=== PATIENT | female | born 1955 | race Caucasian/White ===

== ENCOUNTER 2017-03-30 06:59 | Outpatient (CLI) | payer OTHER ==
--- NOTE | 2017-03-30 10:22 | RAD ---
TWO VIEW CHEST: Comparison: 11-27-12 Indication: Dyspnea. FINDINGS: There is consolidation, effusion, or pneumothorax. Cardiac silhouette is within normal limits. There is osseous degenerative change. IMPRESSION: No focal consolidation. POS: [facility]
== END 2017-03-30 07:00 | disposition home or self-care (01) ==
LOC: RAD 06:59
PROVIDERS: ATTEND Internal Medicine Critical Care Medicine
DX: R06.00 Dyspnea, unspecified (principal)
CPT/HCPCS: 71020

== ENCOUNTER 2018-04-26 13:27 | Outpatient (CLI) | payer OTHER ==
--- NOTE | 2018-04-26 15:20 | BD ---
DEXA BONE DENSITY SCAN: DATE: 04/26/2018. COMPARISON: None. HISTORY: Postmenopausal female undergoing screening for osteoporosis. FINDINGS: Lumbar Spine: BMD (g/cm2) L1 1.101 T-Score: 1.0 L2 1.271 T-Score: 2.2 L3 1.354 T-Score: 2.5 L4 1.278 T-Score: 2.0 L1-L4 1.255 T-Score: 1.9 Femoral Neck: 0.841 T-Score: -0.1 Total Femur: 1.184 T-Score: 2.0 FRAX-WHO fracture risk assessment tool is not reported as T-scores are at or above -1.0. Impression: Normal lumbar spine bone mineral density. POS: [facility]
== END 2018-04-26 13:28 | disposition home or self-care (01) ==
LOC: BICMAMMO 13:27
PROVIDERS: ATTEND Internal Medicine
DX: Z12.31 Encounter for screening mammogram for malignant neoplasm of breast (principal); Z13.820 Encounter for screening for osteoporosis; Z78.0 Asymptomatic menopausal state
CPT/HCPCS: 77063; 77067; 77080

== ENCOUNTER 2019-02-21 15:45 | Outpatient (CLI) | payer MEDICARE ==
--- NOTE | 2019-02-21 16:25 | RAD ---
CERVICAL SPINE SERIES WITH FLEXION AND EXTENSION, FIVE VIEWS: 02/21/19 HISTORY: Neck pain. There is severe arthritic change of the lower spine. Marked degenerative change at the C5-6 and C6-7 levels. Very minimal anterolisthesis of C4 on C5 not significantly changed on the flexion or extensio n views. IMPRESSION: Marked arthritic changes of the lower cervical spine. POS: [facility]
--- NOTE | 2019-02-21 16:50 | MRI ---
MRI Cervical spine without contrast: HISTORY: Neck Pain COMPARISON: 18 June 2016 FINDINGS: The craniocervical junction is unremarkable. No significant cord signal abnormality. Grade 1 spondylolisthesis, C4-5. Focal kyphosis centered at C5-6 with prominent endplate degeneration and disc space narrowing. C1-2:Degenerative hypertrophy without significant stenosis C2-3:Right asymmetric disc osteophyte and uncinate process hypertrophy result in moderate right neura l foraminal stenosis. No high-grade central canal or left foraminal stenosis C3-4:Broad-based disc osteophyte, uncinate process and facet hypertrophy result in mild central canal stenosis, moderate left and mild to moderate right neural foraminal stenosis C4-5:Broad-based disc osteophyte, with moderate bilateral neural foraminal narrowing. Mild narrowing of central canal C5-6:Right asymmetric broad-based disc osteophyte with mild to moderate central canal stenosis and ve ntral cord effacement. There is [id number] bilateral neural foraminal narrowing C6-7: Broad-based disc osteophyte with moderate central canal stenosis and ventral cord effacement. T here is moderate to severe bilateral neural foraminal stenosis C7-T1:Mild disc osteophyte formation without high-grade central canal stenosis. There is mild bilater al neural foraminal narrowing. IMPRESSION: Multilevel degenerative change throughout the cervical spine, as above. Transcribed Date/Time: 02/21/2019 4:57 PM
== END 2019-02-21 15:46 | disposition home or self-care (01) ==
LOC: TBSIIMAG 15:45
PROVIDERS: ATTEND Physician Assistant Surgical
DX: M54.2 Cervicalgia (principal); R20.2 Paresthesia of skin; M47.812 Spondylosis without myelopathy or radiculopathy, cervical region
CPT/HCPCS: 72050; 72141

== ENCOUNTER 2020-01-16 09:17 | Emergency (ER) | payer MEDICARE ==
[2020-01-16 10:04] LABS: #Eosinphils 0.1 thou/uL (0.0-0.7); #Monocytes 0.6 thou/uL (0.11-0.59); #Neutrophils 5.1 thou/uL (1.40-6.50); %Basophils 0.4 % (0.0-1.0); %Eosinophils 1.7 % (0.0-10.0); %Lymphocytes 25.5 % (21.0-51.0); %Monocytes 7.3 % (0.0-10.0); %Neutrophils 65.1 % (42.0-75.0); Hemoglobin 11.7 g/dL (12.0-16.0); Mean Corpuscular HGB CONC 32.9 g/dL (32.0-36.0); Mean Corpuscular Hemoglobin 29.3 pg (27.0-31.0); Mean Corpuscular Volume 88.8 fL (78.0-98.0); Mean Platelet Volume 7.8 fL (7.4-10.4); Platelet Count 226 thou/uL (130-400); RBC Distribution Width 13.2 % (11.5-14.5); White Blood Cell (WBC) Count 7.9 thou/uL (4.8-10.8)
--- NOTE | 2020-01-16 10:12 | CT ---
CT BRAIN NONCONTRAST: DATE: 01/16/2020 HISTORY: 64-year-old female status post acute head trauma due to fall FINDINGS: There is no evidence of acute intra-axial or extra-axial hemorrhage. There is no midline shift or any other mass effect. There is no extra-axial fluid collection. The ventricles are normal in size and configuration. The tympanomastoid cavities, and the upper portions of the paranasal sinuses included in these images, are grossly clear. Calvarium is intact. IMPRESSION: Normal.
--- NOTE | 2020-01-16 10:19 | CT ---
CT CERVICAL SPINE NONCONTRAST: DATE: 01/16/2020 HISTORY: cervical trauma: 64-year-old female status post fall FINDINGS: There are no jumped or perched facets. There is no evidence of acute fracture. The vertebral body hei ghts are maintained. There is no prevertebral soft tissue swelling. There are degenerative disc changes and facet osteoarthrosis. There are nonspecific groundglass changes at the bilateral lung api feli. IMPRESSION: 1) Cervical spondylosis. 2) no evidence of acute fracture or acute traumatic subluxation.
--- NOTE | 2020-01-16 10:21 | RAD ---
XR Chest 1 View Portable HISTORY: Trauma, head injury COMPARISON: 10/12/2019 FINDINGS: The heart size is normal. The lungs are well expanded without focal areas of consolidation, pneumothorax or pleural effusions. IMPRESSION: No radiographic evidence of acute cardiopulmonary process.
[2020-01-16 10:27] LABS: ALT (SGPT) 26 U/L (8-55); AST (SGOT) 22 U/L (5-34); Alkaline Phosphatase 78 U/L (40-110); Anion Gap 15 mmol/L (10-20); BUN (Urea Nitrogen) 15 mg/dL (9.8-20.1); Bilirubin, Total 0.5 mg/dL (0.2-1.2); Calc. Creatinine Clearance 0 mL/min (70-130); Carbon Dioxide 23 mmol/L (23-31); Chloride 106 mmol/L (98-107); Estimated GFR-MDRD 76; Globulin 3.2 g/dL (2.4-3.5); Glucose 121 mg/dL (80-115); Potassium 3.6 mmol/L (3.5-5.1); Protein, Total 7.2 g/dL (6.0-8.3); Sodium 140 mmol/L (136-145)
[2020-01-16 10:28] LABS: Prothrombin Time 12.9 sec (12.0-14.7)
== END 2020-01-16 11:05 | disposition home or self-care (01) ==
LOC: ERS 09:17
DX: S09.90XA Unspecified injury of head, initial encounter (principal); I10 Essential (primary) hypertension; V19.9XXA Pedal cyclist (driver) (passenger) injured in unspecified traffic accident, initial encounter
CPT/HCPCS: 36415; 70450; 71045; 72125; 80053; 85025; 85610

== ENCOUNTER 2020-03-25 20:53 | Emergency (ER) | payer MEDICARE ==
[2020-03-25 21:24] LABS: #Eosinphils 0.1 thou/uL (0.0-0.7); #Lymphocytes 2.8 thou/uL (1.20-3.40); #Monocytes 0.8 thou/uL (0.11-0.59); #Neutrophils 5.4 thou/uL (1.40-6.50); %Basophils 0.3 % (0.0-1.0); %Eosinophils 1.6 % (0.0-10.0); %Lymphocytes 30.3 % (21.0-51.0); %Monocytes 8.8 % (0.0-10.0); Hemoglobin 12.3 g/dL (12.0-16.0); Mean Corpuscular HGB CONC 33.5 g/dL (32.0-36.0); Mean Corpuscular Hemoglobin 29.8 pg (27.0-31.0); Platelet Count 254 thou/uL (130-400); Red Blood Cell (RBC) Count 4.14 mill/uL (4.20-5.40); White Blood Cell (WBC) Count 9.2 thou/uL (4.8-10.8)
[2020-03-25 21:29] LABS: Bilirubin Negative (Negative); Blood, Urine Negative (Negative); Clarity Clear (Clear); Glucose, Urine (Dipstick) Normal (Negative); Ketone, Urine Negative (Negative); Leukocyte Negative Leu/uL (Negative); Nitrite Negative (Negative); Protein, Urine (Dipstick) Negative (Neg-Trace); Urobilinogen Normal mg/dL (Less than 2); pH, Urine 6.5 (5.0-9.0)
[2020-03-25 21:32] LABS: Specific Gravity, Urine 1.005 (1.002-1.036)
[2020-03-25 21:46] LABS: ALT (SGPT) 15 U/L (8-55); AST (SGOT) 16 U/L (5-34); Albumin 4.4 g/dL (3.4-4.8); Alkaline Phosphatase 78 U/L (40-110); Anion Gap 15 mmol/L (10-20); BUN (Urea Nitrogen) 12 mg/dL (9.8-20.1); Bilirubin, Total 0.2 mg/dL (0.2-1.2); Calc. Creatinine Clearance 0 mL/min (70-130); Calcium 9.4 mg/dL (7.8-10.44); Carbon Dioxide 23 mmol/L (23-31); Chloride 110 mmol/L (98-107); Estimated GFR-MDRD 76; Globulin 3.2 g/dL (2.4-3.5); Glucose 164 mg/dL (80-115); Potassium 3.8 mmol/L (3.5-5.1); Protein, Total 7.6 g/dL (6.0-8.3); Sodium 144 mmol/L (136-145)
--- NOTE | 2020-03-25 21:48 | RAD ---
Chest one view HISTORY: Hypertension. COMPARISON: 01/16/2020. FINDINGS: Cardiac silhouette is magnified and enlarged. Pulmonary vasculature is unremarkable. Mediastinum is midline. No lobar consolidation or evidence of pneumothorax. IMPRESSION : Cardiomegaly, stable. No new abnormalities are demonstrated.
== END 2020-03-26 00:02 | disposition home or self-care (01) ==
LOC: ERS 20:53
DX: I10 Essential (primary) hypertension (principal); Z79.82 Long term (current) use of aspirin; Z79.899 Other long term (current) drug therapy
CPT/HCPCS: 36415; 71045; 80053; 81003; 84484; 85025; 93005

== ENCOUNTER 2021-05-07 10:50 | Outpatient (CLI) | payer MEDICARE | END 2021-05-07 10:51 | disposition home or self-care (01) | LOC: BICMAMMO 10:50 | PROVIDERS: ATTEND Internal Medicine | DX: Z12.31 Encounter for screening mammogram for malignant neoplasm of breast (principal) | CPT/HCPCS: 77063; 77067 ==

== ENCOUNTER 2021-08-15 15:31 | Observation (INO) | payer MEDICARE ==
[~2021-08-15 15:31] MED LIST: Iopamidol-370 76% 500 ML 1 ML ONE
[2021-08-15] MEDS ORDERED: Nitroglycerin 2% Ointment 1 INCH/1 GM Packet ONE (15:45)
[2021-08-15] MEDS ORDERED: Metoprolol Tartrate 5 MG/5 ML VIAL ONE (15:45)
[2021-08-15 15:55] LABS: #Eosinphils 0.1 thou/uL (0.0-0.7); #Lymphocytes 2.9 thou/uL (1.20-3.40); #Monocytes 0.5 thou/uL (0.11-0.59); %Basophils 0.1 % (0.0-1.0); %Eosinophils 1.3 % (0.0-10.0); %Lymphocytes 34.4 % (21.0-51.0); %Monocytes 5.5 % (0.0-10.0); %Neutrophils 58.7 % (42.0-75.0); Hemoglobin 12.8 g/dL (12.0-16.0); Mean Corpuscular HGB CONC 32.3 g/dL (32.0-36.0); Mean Corpuscular Hemoglobin 29.9 pg (27.0-31.0); Mean Corpuscular Volume 92.4 fL (78.0-98.0); Platelet Count 373 thou/uL (130-400); RBC Distribution Width 12.8 % (11.5-14.5); Red Blood Cell (RBC) Count 4.29 mill/uL (4.20-5.40); White Blood Cell (WBC) Count 8.5 thou/uL (4.8-10.8)
[2021-08-15 16:16] LABS: ALT (SGPT) 22 U/L (8-55); AST (SGOT) 27 U/L (5-34); Albumin 4.1 g/dL (3.4-4.8); Alkaline Phosphatase 78 U/L (40-110); Anion Gap 17 mmol/L (10-20); BUN (Urea Nitrogen) 13 mg/dL (9.8-20.1); Bilirubin, Total 0.5 mg/dL (0.2-1.2); Calc. Creatinine Clearance 0 mL/min (70-130); Calcium 9.6 mg/dL (7.8-10.44); Carbon Dioxide 21 mmol/L (23-31); Chloride 104 mmol/L (98-107); Glucose 160 mg/dL (80-115); Magnesium 1.9 mg/dL (1.6-2.6); Potassium 3.6 mmol/L (3.5-5.1); Protein, Total 8.1 g/dL (5.8-8.1); Sodium 138 mmol/L (136-145)
[2021-08-15] MEDS ORDERED: HYDROcodone/Acetaminophen 7.5/325 mg Tablet ONE (16:53)
[2021-08-15] MEDS ORDERED: Lorazepam 1 MG TAB ONE (19:35)
[2021-08-15 20:37] LABS: Troponin I Less than 0.010 ng/mL (< 0.028)
[2021-08-15] MEDS ORDERED: Acetaminophen 325 MG TAB PO PRN (21:31)
[2021-08-15] MEDS ORDERED: Nitroglycerin 0.4 MG TAB (25 Tab Bottle) SL PRN (21:31)
[2021-08-15] MEDS ORDERED: hydrALAZINE 20 MG/ML VIAL SLOW IVP PRN (21:46)
[2021-08-15 23:17] VITALS: BMI 33.2
[2021-08-15] MEDS: HYDROcodone/Acetaminophen 7.5/325 mg Tablet PO PRN (23:35)
[2021-08-15 23:42] LABS: Troponin I Less than 0.010 ng/mL (< 0.028)
[2021-08-16] MEDS: HYDROcodone/Acetaminophen 7.5/325 mg Tablet PO PRN ×4 (04:00→22:01)
[2021-08-16] MEDS: NIFEdipine XL 30 MG TAB PO SCH ×2 (04:48→18:15)
[2021-08-16 05:12] LABS: #Eosinphils 0.1 thou/uL (0.0-0.7); #Lymphocytes 2.3 thou/uL (1.20-3.40); #Monocytes 0.6 thou/uL (0.11-0.59); #Neutrophils 5.1 thou/uL (1.40-6.50); %Basophils 0.2 % (0.0-1.0); %Lymphocytes 28.6 % (21.0-51.0); %Monocytes 7.5 % (0.0-10.0); %Neutrophils 62.8 % (42.0-75.0); Hemoglobin 11.3 g/dL (12.0-16.0); Mean Corpuscular HGB CONC 32.2 g/dL (32.0-36.0); Mean Corpuscular Hemoglobin 29.8 pg (27.0-31.0); Mean Corpuscular Volume 92.5 fL (78.0-98.0); Mean Platelet Volume 6.7 fL (7.4-10.4); Platelet Count 327 thou/uL (130-400); RBC Distribution Width 12.9 % (11.5-14.5); White Blood Cell (WBC) Count 8.1 thou/uL (4.8-10.8)
[2021-08-16 05:31] LABS: Anion Gap 14 mmol/L (10-20); BUN (Urea Nitrogen) 12 mg/dL (9.8-20.1); Calc. Creatinine Clearance 113 mL/min (70-130); Calcium 9.1 mg/dL (7.8-10.44); Carbon Dioxide 23 mmol/L (23-31); Chloride 107 mmol/L (98-107); Glucose 105 mg/dL (80-115); Potassium 3.4 mmol/L (3.5-5.1); Sodium 141 mmol/L (136-145)
[2021-08-16] MEDS: Aspirin 325 mg Enteric Coated Tablet PO SCH ×3 (08:02→08:03)
[2021-08-16] MEDS: Enoxaparin Sodium 40 MG/0.4 ML SYRINGE SC SCH (08:03)
[2021-08-16] MEDS: ALPRAZolam 0.25 MG TAB PO PRN ×2 (08:05→19:41)
[2021-08-16] MEDS ORDERED: NIFEdipine XL 30 MG TAB PO SCH ×2 (09:00→18:00)
[2021-08-16] MEDS ORDERED: ADENOSINE 60 MG/20 ML VIAL ONE (10:50)
[2021-08-16 16:20] LABS: SARS-CoV-2 PCR by NAA Not Detected (NotDetected)
[2021-08-16] MEDS ORDERED: Potassium Chloride 20 MEQ TAB PO SCH (16:30)
[2021-08-16] MEDS ORDERED: Labetalol HCl 100 MG/20 ML VIAL ONE (18:00)
[2021-08-16] MEDS ORDERED: Labetalol HCl 100 MG/20 ML VIAL SLOW IVP SCH (18:00)
[2021-08-16] MEDS ORDERED: Labetalol HCl 100 MG/20 ML VIAL SLOW IVP PRN (18:34)
[2021-08-17] MEDS: HYDROcodone/Acetaminophen 7.5/325 mg Tablet PO PRN ×3 (02:15→10:43)
[2021-08-17 05:17] LABS: #Eosinphils 0.1 thou/uL (0.0-0.7); #Lymphocytes 2.8 thou/uL (1.20-3.40); #Monocytes 0.6 thou/uL (0.11-0.59); #Neutrophils 3.7 thou/uL (1.40-6.50); %Basophils 0.1 % (0.0-1.0); %Eosinophils 1.6 % (0.0-10.0); %Lymphocytes 39.3 % (21.0-51.0); %Monocytes 7.8 % (0.0-10.0); %Neutrophils 51.3 % (42.0-75.0); Hemoglobin 11.8 g/dL (12.0-16.0); Mean Corpuscular HGB CONC 32.5 g/dL (32.0-36.0); Mean Corpuscular Hemoglobin 30.1 pg (27.0-31.0); Mean Corpuscular Volume 92.7 fL (78.0-98.0); Mean Platelet Volume 6.9 fL (7.4-10.4); Platelet Count 339 thou/uL (130-400); RBC Distribution Width 13.1 % (11.5-14.5); Red Blood Cell (RBC) Count 3.92 mill/uL (4.20-5.40); White Blood Cell (WBC) Count 7.2 thou/uL (4.8-10.8)
[2021-08-17 05:42] LABS: Anion Gap 13 mmol/L (10-20); BUN (Urea Nitrogen) 13 mg/dL (9.8-20.1); Calc. Creatinine Clearance 110 mL/min (70-130); Calcium 9.2 mg/dL (7.8-10.44); Carbon Dioxide 22 mmol/L (23-31); Chloride 108 mmol/L (98-107); Glucose 92 mg/dL (80-115); Potassium 4.1 mmol/L (3.5-5.1); Sodium 139 mmol/L (136-145)
[2021-08-17 07:36] VITALS: BP 162/67; TEMP 98.3
[2021-08-17] MEDS: Aspirin 325 mg Enteric Coated Tablet PO SCH (08:51)
[2021-08-17] MEDS: Enoxaparin Sodium 40 MG/0.4 ML SYRINGE SC SCH (08:52)
[2021-08-17] MEDS: ALPRAZolam 0.25 MG TAB PO PRN (08:53)
[2021-08-17] MEDS ORDERED: NIFEdipine XL 60 MG TAB PO SCH (09:00)
== END 2021-08-17 11:00 | disposition home or self-care (01) ==
LOC: ERS 15:31 → 2SW 19:29
PROVIDERS: ADMIT Internal Medicine; ATTEND Internal Medicine
DX: R07.89 Other chest pain (principal); E87.6 Hypokalemia; I16.0 Hypertensive urgency; I10 Essential (primary) hypertension; Z79.82 Long term (current) use of aspirin; Z79.899 Other long term (current) drug therapy; Z96.652 Presence of left artificial knee joint; Z20.822 Contact with and (suspected) exposure to COVID-19
CPT/HCPCS: 71275; 78452; 80048 ×2; 80053; 82962; 83735; 83880; 84484 ×2; 85025 ×3; 93017; 94760 ×3; 96372 ×2; 96374; 96375; 99285; A9500; G0378 ×4; U0003; U0005; 36415; 36416; J0153; J0360; J1650; Q9967

== ENCOUNTER 2021-09-23 10:14 | Emergency (ER) | payer MEDICARE ==
[2021-09-23 11:04] LABS: Bilirubin Negative (Negative); Blood, Urine Negative (Negative); Clarity Clear (Clear); Glucose, Urine (Dipstick) Normal (Negative); Ketone, Urine Negative (Negative); Leukocyte Negative Leu/uL (Negative); Nitrite Negative (Negative); Protein, Urine (Dipstick) Negative (Neg-Trace); Specific Gravity, Urine 1.011 (1.002-1.036); Urobilinogen Normal mg/dL (Less than 2)
[2021-09-23 11:33] LABS: #Eosinphils 0.2 thou/uL (0.0-0.7); #Lymphocytes 2.7 thou/uL (1.20-3.40); #Monocytes 0.5 thou/uL (0.11-0.59); #Neutrophils 4.3 thou/uL (1.40-6.50); %Basophils 0.6 % (0.0-1.0); %Eosinophils 2.9 % (0.0-10.0); %Lymphocytes 35.6 % (21.0-51.0); %Monocytes 5.8 % (0.0-10.0); %Neutrophils 55.2 % (42.0-75.0); Hemoglobin 13.6 g/dL (12.0-16.0); Mean Corpuscular Volume 90.9 fL (78.0-98.0); Platelet Count 315 thou/uL (130-400); RBC Distribution Width 12.2 % (11.5-14.5); Red Blood Cell (RBC) Count 4.52 mill/uL (4.20-5.40); White Blood Cell (WBC) Count 7.7 thou/uL (4.8-10.8)
[2021-09-23] MEDS ORDERED: Ketorolac Tromethamine 30 MG/ML VIAL ONE (11:33)
[2021-09-23 11:51] LABS: ALT (SGPT) 21 U/L (8-55); AST (SGOT) 22 U/L (5-34); Albumin 4.3 g/dL (3.4-4.8); Alkaline Phosphatase 103 U/L (40-110); Anion Gap 15 mmol/L (10-20); BUN (Urea Nitrogen) 7 mg/dL (9.8-20.1); Bilirubin, Total 0.4 mg/dL (0.2-1.2); Calc. Creatinine Clearance 0 mL/min (70-130); Calcium 9.4 mg/dL (7.8-10.44); Carbon Dioxide 24 mmol/L (23-31); Chloride 104 mmol/L (98-107); Globulin 3.8 g/dL (2.4-3.5); Glucose 119 mg/dL (80-115); Lipase 15 U/L (8-78); Potassium 3.7 mmol/L (3.5-5.1); Protein, Total 8.1 g/dL (5.8-8.1); Sodium 139 mmol/L (136-145)
[2021-09-23] MEDS ORDERED: Morphine 4 MG/ML VIAL ONE (13:14)
== END 2021-09-23 13:20 | disposition home or self-care (01) ==
LOC: ERS 10:14
DX: R10.9 Unspecified abdominal pain (principal); I10 Essential (primary) hypertension
CPT/HCPCS: 36415; 74177; 80053; 81003; 83690; 85025; 96374; 96375; J1885; J2270

== ENCOUNTER 2022-12-27 08:25 | Outpatient (CLI) | payer MEDICARE | END 2022-12-27 08:26 | disposition home or self-care (01) | LOC: NM 08:25 | PROVIDERS: ATTEND Specialist | DX: M17.12 Unilateral primary osteoarthritis, left knee (principal); Z96.652 Presence of left artificial knee joint | CPT/HCPCS: 78315; A9503 ==

== ENCOUNTER 2023-04-06 12:28 | Outpatient (CLI) | payer MEDICARE ==
[2023-04-06 14:34] LABS: #Basophils 0.1 10x3/uL (0.0-0.2); #Eosinphils 0.2 10x3/uL (0.0-0.5); #Monocytes 0.6 10x3/uL (0.0-1.1); #Neutrophils 5.2 10x3/uL (1.5-8.4); %Basophils 0.7 % (0.0-2.0); %Eosinophils 2.2 % (0.0-6.0); %Monocytes 6.6 % (0.0-10.0); %Neutrophils 56.2 % (40.0-75.0); Hematocrit 40.4 % (34.9-44.5); Hemoglobin 13.1 g/dL (12.0-15.5); Mean Corpuscular HGB CONC 32.4 g/dL (32.0-36.0); Mean Corpuscular Volume 86.3 fl (81.6-98.3); Mean Platelet Volume 10.7 fl (7.4-10.4); Platelet Count 334 10x3/uL (150-450); RBC Distribution Width 13.6 % (11.5-14.5); Red Blood Cell (RBC) Count 4.68 10x6/uL (3.90-5.03); White Blood Cell (WBC) Count 9.2 10x3/uL (3.5-10.5)
[2023-04-06 14:42] LABS: Prothrombin Time 10.3 sec (9.5-12.1)
[2023-04-06 14:57] LABS: Anion Gap 15 mmol/L (10-20); BUN (Urea Nitrogen) 14 mg/dL (9.8-20.1); Calc. Creatinine Clearance 0 mL/min (70-130); Calcium 9.7 mg/dL (7.8-10.44); Carbon Dioxide 24 mmol/L (23-31); Chloride 106 mmol/L (98-107); Estimated GFR 92; Glucose 99 mg/dL (80-115); Potassium 4.2 mmol/L (3.5-5.1); Sodium 141 mmol/L (136-145)
== END 2023-04-06 12:29 | disposition home or self-care (01) ==
LOC: LABBT 12:28
PROVIDERS: ATTEND Orthopaedic Surgery
DX: Z01.818 Encounter for other preprocedural examination (principal); Z96.652 Presence of left artificial knee joint
CPT/HCPCS: 80048; 85025; 85610; 87081; 93005; 93010

== ENCOUNTER 2023-04-12 05:34 | Inpatient (IN) | payer MEDICARE ==
[2023-04-06 13:10] VITALS: BMI 32.4
[2023-04-12] MEDS ORDERED: Tranexamic Acid 1,000 MG/10 ML VIAL ONE (06:03)
[2023-04-12] MEDS ORDERED: Sodium Chloride 0.9% 100 ML ONE ×2 (06:03→06:57)
[2023-04-12] MEDS ORDERED: Vancomycin (BATCH) 1.5 GM/300 ML BAG ONE (06:03)
[2023-04-12] MEDS ORDERED: Dexmedetomidine 200 MCG/2 ML VIAL ONE (06:04)
[2023-04-12] MEDS ORDERED: fentaNYL PF 100 MCG/2 ML SYRINGE ONE (06:04)
[2023-04-12] MEDS ORDERED: HYDROmorphone 0.5 MG/0.5 ML SYRINGE ONE ×4 (06:05→11:03)
[2023-04-12] MEDS ORDERED: Midazolam HCl 2 mg/2 ml Vial ONE (06:05)
[2023-04-12] MEDS ORDERED: Tobramycin Sulfate 1.2 GM VIAL ONE (06:30)
[2023-04-12] MEDS ORDERED: Vancomycin 1 GM VIAL ONE (06:30)
[2023-04-12] MEDS ORDERED: Bupivacaine PF 0.5% 30 ML VIAL ONE ×2 (06:30→08:08)
[2023-04-12] MEDS ORDERED: diphenhydrAMINE 25 MG CAP PO PRN (06:39)
[2023-04-12] MEDS ORDERED: Promethazine HCl 25 MG/ML VIAL IM PRN ×3 (06:39→08:47)
[2023-04-12] MEDS ORDERED: HYDROcodone/Acetaminophen 10/325 mg Tablet PO PRN ×2 (06:39)
[2023-04-12] MEDS ORDERED: Acetaminophen 325 MG TAB PO PRN (06:39)
[2023-04-12] MEDS ORDERED: Zolpidem Tartrate 5 MG TAB PO PRN ×2 (06:39→08:00)
[2023-04-12] MEDS ORDERED: fentaNYL 50 mcg/mL 1 mL Vial SLOW IVP PRN ×3 (06:39→07:51)
[2023-04-12] MEDS ORDERED: Ondansetron PF 4 MG/2 ML Vial IVP PRN (06:39)
[2023-04-12] MEDS ORDERED: Ondansetron PF 4 MG/2 ML Vial ONE ×2 (06:41→09:09)
[2023-04-12] MEDS ORDERED: Bupivacaine HCl 0.5%/Epinephrine 1:200,000/PF 30 ml Vial ONE (06:41)
[2023-04-12] MEDS ORDERED: hydrALAZINE 25 MG TAB PO PRN (06:48)
[2023-04-12] MEDS ORDERED: CEFAZOLIN 2 GM VIAL ONE (06:56)
[2023-04-12] MEDS ORDERED: Propofol 500 MG/50 ML VIAL ONE (07:02)
[2023-04-12] MEDS ORDERED: Ropivacaine 0.2% 550 ML 550 ML NERVE BLCK SCH (08:00)
[2023-04-12] MEDS ORDERED: PROPOFOL 20 ML ONE ×3 (08:08→09:01)
[2023-04-12] MEDS ORDERED: Lidocaine 1% (PF) 30 ML VIAL ONE (08:08)
[2023-04-12] MEDS ORDERED: HYDROmorphone 2 MG/ML VIAL SLOW IVP PRN (08:47)
[2023-04-12] MEDS ORDERED: Ondansetron HCl/PF 4 MG/2 ML Vial IVP PRN (08:47)
[2023-04-12] MEDS ORDERED: cloNIDine 0.1mg/24 Hour PATCH TD SCH (09:00)
[2023-04-12] MEDS ORDERED: Ketorolac Tromethamine 30 MG/ML VIAL ONE (09:50)
[2023-04-12] MEDS: ALPRAZolam 0.25 MG TAB PO SCH ×2 (13:22→21:19)
[2023-04-12] MEDS: Flecainide 50 MG TAB PO SCH ×2 (13:22→21:19)
[2023-04-12] MEDS: Sodium Chloride 0.9% 1,000 ML IV SCH ×2 (13:22→18:32)
[2023-04-12] MEDS: Cholecalciferol 1,000 UNITS (25 MCG) TAB PO SCH (13:22)
[2023-04-12] MEDS: Aspirin 81 mg Enteric Coated Tablet PO SCH ×2 (13:22→21:19)
[2023-04-12] MEDS: NIFEdipine XL 60 MG ER.TAB PO SCH (13:22)
[2023-04-12] MEDS: Ketorolac Tromethamine 30 MG/ML VIAL IVP SCH ×3 (13:26→23:59)
[2023-04-12] MEDS ORDERED: Ketorolac Tromethamine 30 MG/ML VIAL IVP SCH (14:00)
[2023-04-12] MEDS: CEFAZOLIN 2 GM in Sodium Chloride 0.9% 100 ML IVPB SCH (15:10)
[2023-04-12] MEDS: Ondansetron PF 4 MG/2 ML Vial IVP PRN ×2 (15:12→21:17)
[2023-04-12] MEDS: Atorvastatin Calcium 20 MG TAB PO SCH (21:19)
[2023-04-12] MEDS: HYDROcodone/Acetaminophen 10/325 mg Tablet PO PRN (21:19)
[2023-04-13] MEDS: CEFAZOLIN 2 GM in Sodium Chloride 0.9% 100 ML IVPB SCH
[2023-04-13] MEDS: Ondansetron PF 4 MG/2 ML Vial IVP PRN ×2 (05:43→11:46)
[2023-04-13] MEDS: Ketorolac Tromethamine 30 MG/ML VIAL IVP SCH ×3 (05:43→18:14)
[2023-04-13] MEDS: HYDROcodone/Acetaminophen 10/325 mg Tablet PO PRN ×4 (05:46→22:20)
[2023-04-13 06:16] LABS: Hematocrit 30.4 % (36.0-47.0); Hemoglobin 9.6 g/dL (12.0-16.0); Mean Corpuscular HGB CONC 31.6 g/dL (32.0-36.0); Mean Corpuscular Hemoglobin 28.5 pg (27.0-31.0); Mean Corpuscular Volume 90.2 fl (78.0-98.0); Mean Platelet Volume 10.9 fL (7.4-10.4); Platelet Count 218 10x3/uL (130-400); RBC Distribution Width 13.6 % (11.5-14.5); Red Blood Cell (RBC) Count 3.37 mill/uL (4.20-5.40); White Blood Cell (WBC) Count 10.2 10x3/uL (4.8-10.8)
[2023-04-13] MEDS: Sodium Chloride 0.9% 1,000 ML IV SCH ×2 (06:21→16:11)
[2023-04-13] MEDS: NIFEdipine XL 60 MG ER.TAB PO SCH (09:21)
[2023-04-13] MEDS: Aspirin 81 mg Enteric Coated Tablet PO SCH ×2 (09:21→20:43)
[2023-04-13] MEDS: Flecainide 50 MG TAB PO SCH ×2 (09:21→20:43)
[2023-04-13] MEDS: ALPRAZolam 0.25 MG TAB PO SCH ×2 (09:21→20:43)
[2023-04-13] MEDS ORDERED: Scopolamine 1 mg/72 hour Patch TD SCH ×2 (11:08→12:15)
[2023-04-13] MEDS ORDERED: Dexamethasone 4 mg/ml Vial SLOW IVP SCH (11:15)
[2023-04-13] MEDS: Senokot S 8.6-50 MG TAB PO SCH ×2 (12:39→20:43)
[2023-04-13] MEDS: Ferrous Gluconate 324 MG TAB PO SCH ×2 (12:39→20:43)
[2023-04-13] MEDS: Cholecalciferol 1,000 UNITS (25 MCG) TAB PO SCH (12:39)
[2023-04-13] MEDS: Multivitamin W/ Minerals 1 TAB PO SCH (12:39)
[2023-04-13] MEDS: Atorvastatin Calcium 20 MG TAB PO SCH (20:43)
[2023-04-14] MEDS: Ketorolac Tromethamine 30 MG/ML VIAL IVP SCH ×2 (00:17→05:25)
[2023-04-14] MEDS: Sodium Chloride 0.9% 1,000 ML IV SCH ×3 (00:20→21:27)
[2023-04-14] MEDS: HYDROcodone/Acetaminophen 10/325 mg Tablet PO PRN ×5 (05:26→21:25)
[2023-04-14 05:33] LABS: Hematocrit 32.3 % (36.0-47.0); Mean Corpuscular Hemoglobin 27.7 pg (27.0-31.0); Mean Corpuscular Volume 89.5 fl (78.0-98.0); Mean Platelet Volume 10.8 fL (7.4-10.4); Platelet Count 229 10x3/uL (130-400); RBC Distribution Width 13.5 % (11.5-14.5); Red Blood Cell (RBC) Count 3.61 mill/uL (4.20-5.40); White Blood Cell (WBC) Count 12.1 10x3/uL (4.8-10.8)
[2023-04-14] MEDS: NIFEdipine XL 60 MG ER.TAB PO SCH (09:45)
[2023-04-14] MEDS: Senokot S 8.6-50 MG TAB PO SCH ×2 (09:45→20:07)
[2023-04-14] MEDS: Flecainide 50 MG TAB PO SCH ×2 (09:45→20:07)
[2023-04-14] MEDS: Ferrous Gluconate 324 MG TAB PO SCH ×2 (09:46→20:07)
[2023-04-14] MEDS: Multivitamin W/ Minerals 1 TAB PO SCH (09:46)
[2023-04-14] MEDS: ALPRAZolam 0.25 MG TAB PO SCH ×2 (09:46→20:07)
[2023-04-14] MEDS: Cholecalciferol 1,000 UNITS (25 MCG) TAB PO SCH (09:46)
[2023-04-14] MEDS: Aspirin 81 mg Enteric Coated Tablet PO SCH (09:50)
[2023-04-14] MEDS ORDERED: Apixaban 5 MG TAB PO SCH (10:15)
[2023-04-14] MEDS ORDERED: DEXAMETHASONE IVPB ONE (11:05)
[2023-04-14] MEDS ORDERED: SODIUM CHLORIDE 0.9% IVPB ONE (11:05)
[2023-04-14] MEDS: Apixaban 5 MG TAB PO SCH (20:07)
[2023-04-14] MEDS: Atorvastatin Calcium 20 MG TAB PO SCH (20:07)
[2023-04-15] MEDS: HYDROcodone/Acetaminophen 10/325 mg Tablet PO PRN ×2 (02:33→06:21)
[2023-04-15] MEDS: Sodium Chloride 0.9% 1,000 ML IV SCH (05:36)
[2023-04-15 08:45] VITALS: BP 147/73; TEMP 98.3
[2023-04-15] MEDS: Ferrous Gluconate 324 MG TAB PO SCH (08:46)
[2023-04-15] MEDS: NIFEdipine XL 60 MG ER.TAB PO SCH (08:46)
[2023-04-15] MEDS: ALPRAZolam 0.25 MG TAB PO SCH (08:46)
[2023-04-15] MEDS: Flecainide 50 MG TAB PO SCH (08:47)
[2023-04-15] MEDS: Senokot S 8.6-50 MG TAB PO SCH (08:47)
[2023-04-15] MEDS: Apixaban 5 MG TAB PO SCH (08:47)
[2023-04-15] MEDS: Cholecalciferol 1,000 UNITS (25 MCG) TAB PO SCH (08:47)
[2023-04-15] MEDS: Multivitamin W/ Minerals 1 TAB PO SCH (08:47)
[2023-04-15] MEDS: Ondansetron PF 4 MG/2 ML Vial IVP PRN (08:49)
[2023-04-15] MEDS ORDERED: Scopolamine 1 mg/72 hour Patch TOP SCH (11:00)
== END 2023-04-15 10:40 | disposition home or self-care (01) | DRG 468 ==
LOC: SDC 05:34 → SURG A 06:43
PROVIDERS: ADMIT Orthopaedic Surgery; ATTEND Orthopaedic Surgery
PROC: 0SPD0JZ Removal of Synthetic Substitute from Left Knee Joint, Open Approach (ICD-10-PCS; principal; 2023-04-12)
PROC: 0SRD0J9 Replacement of Left Knee Joint with Synthetic Substitute, Cemented, Open Approach (ICD-10-PCS; 2023-04-12)
DX: T84.093A Other mechanical complication of internal left knee prosthesis, initial encounter (principal); Y83.8 Other surgical procedures as the cause of abnormal reaction of the patient, or of later complication, without mention of misadventure at the time of the procedure; I10 Essential (primary) hypertension; E78.00 Pure hypercholesterolemia, unspecified; Z90.710 Acquired absence of both cervix and uterus; Z90.49 Acquired absence of other specified parts of digestive tract; Z79.899 Other long term (current) drug therapy; Z98.890 Other specified postprocedural states; Z82.49 Family history of ischemic heart disease and other diseases of the circulatory system; Z83.3 Family history of diabetes mellitus; Z79.01 Long term (current) use of anticoagulants
CPT/HCPCS: 36415; 85027; A4306; C1713; C1776; J1100; J1170; J1885; J2001; J2250; J2405; J2704; J2795; J3010; J3260; J3370; J3490; S0020

== ENCOUNTER 2023-11-10 08:22 | Outpatient (CLI) | payer MEDICARE | END 2023-11-10 08:23 | disposition home or self-care (01) | LOC: BICMAMMO 08:22 | PROVIDERS: ATTEND Internal Medicine | DX: Z12.31 Encounter for screening mammogram for malignant neoplasm of breast (principal); Z13.820 Encounter for screening for osteoporosis; Z78.0 Asymptomatic menopausal state; N64.89 Other specified disorders of breast; M85.851 Other specified disorders of bone density and structure, right thigh; M85.852 Other specified disorders of bone density and structure, left thigh | CPT/HCPCS: 77063; 77067; 77080 ==

== ENCOUNTER 2023-11-15 08:58 | Outpatient (CLI) | payer MEDICARE | END 2023-11-15 08:59 | disposition home or self-care (01) | LOC: BICMAMMO 08:58 | PROVIDERS: ATTEND Internal Medicine | DX: N64.89 Other specified disorders of breast (principal) | CPT/HCPCS: 76642; 77065; G0279 ==

== ENCOUNTER 2023-12-11 07:46 | Emergency (ER) | payer MEDICARE ==
[2023-12-11] MEDS ORDERED: Morphine 4 MG/ML VIAL ONE ×2 (08:02→08:42)
[2023-12-11] MEDS ORDERED: Ketorolac Tromethamine 30 MG (1 mL) VIAL ONE (08:02)
[2023-12-11] MEDS ORDERED: Ondansetron PF 4 MG/2 ML Vial ONE (08:03)
[2023-12-11 08:41] LABS: #Basophils 0.04 10x3/uL (0.0-0.2); %Basophils 0.5 % (0.0-1.0); %Eosinophils 3.7 % (0.0-10.0); %Lymphocytes 44.8 % (21.0-51.0); %Monocytes 5.7 % (0.0-10.0); %Neutrophils 45.2 % (42.0-75.0); Hematocrit 34.5 % (36.0-47.0); Hemoglobin 10.8 g/dL (12.0-16.0); Mean Corpuscular HGB CONC 31.3 g/dL (32.0-36.0); Mean Corpuscular Hemoglobin 26.3 pg (27.0-31.0); Mean Corpuscular Volume 84.1 fL (78.0-98.0); Mean Platelet Volume 10.2 fL (7.4-10.4); Platelet Count 330 10x3/uL (130-400); RBC Distribution Width 14.1 % (11.5-14.5)
[2023-12-11 08:58] LABS: ALT (SGPT) 15 U/L (8-55); AST (SGOT) 20 U/L (5-34); Albumin 3.7 g/dL (3.4-4.8); Alkaline Phosphatase 116 U/L (40-110); Anion Gap 14 mmol/L (10-20); BUN (Urea Nitrogen) 10 mg/dL (9.8-20.1); Bilirubin, Total 0.4 mg/dL (0.2-1.2); Calc. Creatinine Clearance 0 mL/min (70-130); Calcium 9.4 mg/dL (7.8-10.44); Carbon Dioxide 23 mmol/L (23-31); Chloride 106 mmol/L (98-107); Estimated GFR 90; Globulin 4.1 g/dL (2.4-3.5); Glucose 103 mg/dL (80-115); Potassium 3.8 mmol/L (3.5-5.1); Protein, Total 7.8 g/dL (5.8-8.1); Sodium 139 mmol/L (136-145)
[2023-12-11] MEDS ORDERED: Iopamidol-370 76% 500 ML MDV (1 ML CHARGE) ONE (09:51)
[2023-12-11 10:58] LABS: Bacteria/HPF None Seen HPF (None Seen); Bilirubin Negative (Negative); Blood, Urine Negative (Negative); CAUTI Indications for Culture Acute Hematuria; Clarity Clear (Clear); Glucose, Urine (Dipstick) Normal (Negative); Ketone, Urine Negative (Negative); Leukocyte Negative Leu/uL (Negative); Nitrite Negative (Negative); Protein, Urine (Dipstick) Negative (Neg-Trace); RBC/HPF None Seen HPF (0-3); Specific Gravity, Urine 1.009 (1.002-1.036); Squamous Epithelial 0-3 HPF (0-3); Urobilinogen Normal mg/dL (Less than 2); WBC/HPF None Seen HPF (0-3)
[2023-12-11 11:02] LABS: Urine Culture Reflex No No
== END 2023-12-11 13:30 | disposition home or self-care (01) ==
LOC: ERS 07:46
DX: R10.9 Unspecified abdominal pain (principal); I10 Essential (primary) hypertension; I48.91 Unspecified atrial fibrillation; I47.10 Supraventricular tachycardia, unspecified
CPT/HCPCS: 71275; 74174; 74176; 80053; 81001; 85025; J1885; J2272; J2405; 36415; 96374; 96375; Q9967

== ENCOUNTER 2023-12-13 13:43 | Emergency (ER) | payer MEDICARE ==
[~2023-12-13 13:43] MED LIST changes: -Iopamidol-370 76% 500 ML 1 ML ONE; +Iopamidol-370 76% 500 ML MDV (1 ML CHARGE) ONE
[2023-12-13] MEDS ORDERED: Ketorolac Tromethamine 30 MG (1 mL) VIAL ONE (14:36)
[2023-12-13] MEDS ORDERED: Morphine 4 MG/ML VIAL ONE ×2 (14:36→16:34)
[2023-12-13] MEDS ORDERED: Ondansetron PF 4 MG/2 ML Vial ONE (14:36)
[2023-12-13 14:59] LABS: #Basophils 0.03 10x3/uL (0.0-0.2); %Basophils 0.3 % (0.0-1.0); %Lymphocytes 33.3 % (21.0-51.0); %Monocytes 7.5 % (0.0-10.0); %Neutrophils 56.6 % (42.0-75.0); Hematocrit 31.9 % (36.0-47.0); Mean Corpuscular HGB CONC 31.3 g/dL (32.0-36.0); Mean Corpuscular Volume 82.9 fL (78.0-98.0); Mean Platelet Volume 10.3 fL (7.4-10.4); Platelet Count 301 10x3/uL (130-400); RBC Distribution Width 14.1 % (11.5-14.5); Red Blood Cell (RBC) Count 3.85 mill/uL (4.20-5.40)
[2023-12-13 15:13] LABS: ALT (SGPT) 17 U/L (8-55); AST (SGOT) 20 U/L (5-34); Albumin 3.8 g/dL (3.4-4.8); Alkaline Phosphatase 105 U/L (40-110); Anion Gap 16 mmol/L (10-20); BUN (Urea Nitrogen) 16 mg/dL (9.8-20.1); Bilirubin, Total 0.4 mg/dL (0.2-1.2); Calc. Creatinine Clearance 0 mL/min (70-130); Calcium 9.4 mg/dL (7.8-10.44); Carbon Dioxide 23 mmol/L (23-31); Chloride 106 mmol/L (98-107); Estimated GFR 95; Glucose 79 mg/dL (80-115); Potassium 4.2 mmol/L (3.5-5.1); Protein, Total 7.8 g/dL (5.8-8.1); Sodium 141 mmol/L (136-145)
[2023-12-13 15:18] LABS: Troponin I Less than 0.010 ng/mL (< 0.028)
[2023-12-13 15:27] LABS: Bacteria/HPF None Seen HPF (None Seen); Bilirubin Negative (Negative); Blood, Urine Negative (Negative); CAUTI Indications for Culture Dysuria,urgency,freq; Clarity Clear (Clear); Glucose, Urine (Dipstick) Normal (Negative); Ketone, Urine Negative (Negative); Leukocyte Negative Leu/uL (Negative); Nitrite Negative (Negative); Protein, Urine (Dipstick) Negative (Neg-Trace); RBC/HPF None Seen HPF (0-3); Specific Gravity, Urine 1.012 (1.002-1.036); Squamous Epithelial 0-3 HPF (0-3); Urobilinogen Normal mg/dL (Less than 2); WBC/HPF 0-3 HPF (0-3)
[2023-12-13 15:31] LABS: Urine Culture Reflex No No
== END 2023-12-13 17:06 | disposition home or self-care (01) ==
LOC: ERS 13:43
DX: M54.50 Low back pain, unspecified (principal); R03.0 Elevated blood-pressure reading, without diagnosis of hypertension; I10 Essential (primary) hypertension
CPT/HCPCS: 71045; 74177; 80053; 81001; 84484; 85025; J1885; J2272; J2405; 96374; 96375; 96376; Q9967

== ENCOUNTER 2024-02-10 11:57 | Outpatient (CLI) | payer MEDICARE | END 2024-02-10 11:58 | disposition home or self-care (01) | LOC: SCSMRI 11:57 | PROVIDERS: ATTEND Internal Medicine | DX: M54.50 Low back pain, unspecified (principal); M47.816 Spondylosis without myelopathy or radiculopathy, lumbar region; M47.817 Spondylosis without myelopathy or radiculopathy, lumbosacral region | CPT/HCPCS: 72158; 82565 ==